=== PATIENT | female | born 1980 | race Caucasian/White ===

== ENCOUNTER 2021-05-01 12:33 | Inpatient (IN) ==
[2021-05-01] MEDS ORDERED: Azithromycin 500 MG in 0.9 % Sodium Chloride 250 ML IVPB PRN (13:01)
[2021-05-01] MEDS ORDERED: Ondansetron 4 MG/2 ML VIAL IVP PRN (13:01)
[2021-05-01] MEDS ORDERED: Naloxone 0.4 MG/ML INJ IVP PRN (13:01)
[2021-05-01] MEDS ORDERED: Metoclopramide 10 MG/2 ML VIAL IVP PRN (13:01)
[2021-05-01] MEDS ORDERED: Famotidine 20 MG/2 ML VIAL IVP PRN (13:01)
[2021-05-01] MEDS: Ringers Solution, Lactated 1,000 ML IVC SCH (16:22)
[2021-05-01 16:36] LABS: Basophils % 0.2 %; Eosinophils # 0.1 K/mcL (0.0-0.6); Eosinophils % 1.2 %; Hematocrit 41.3 % (35.3-44.9); Hemoglobin 13.2 g/dL (11.5-15.4); Immature Granulocytes % 0.2 % (0-4); Lymphocytes # 1.9 K/mcL (0.6-4.6); Mean Corpuscular Hemoglobin 28.9 pg (28.0-33.3); Mean Corpuscular Volume 90.6 fL (83.0-100.0); Monocytes # 0.4 K/mcL (0.0-1.3); Monocytes % 4.3 %; Neutrophils # 7.9 K/mcL (1.6-8.9); Platelet Count 328 K/mcL (140-400); Red Blood Count 4.56 M/mcL (3.82-4.97); Red Cell Distribution Width 13.3 % (11.5-14.5); Segmented Neutrophils % 76.1 %; White Blood Count 10.3 K/mcL (4.3-11.1)
[2021-05-01 16:52] LABS: Amphetamine Screen,Urine Negative ng/mL (Cutoff=1000); Barbiturate Screen,Urine Negative ng/mL (Cutoff=200); Benzodiazepines Screen,Urine Negative ng/mL (Cutoff=200); Cannabinoid Screen,Urine Negative ng/mL (Cutoff = 50); Cocaine Screen,Urine Negative ng/mL (Cutoff= 300); Opiate Screen,Urine Negative ng/mL (Cutoff=300); Phencyclidine Screen,Urine Negative ng/mL (Cutoff=25)
[2021-05-01] MEDS ORDERED: miSOPROStoL 25 MCG TABLET VG ONE (17:00)
[2021-05-01] MEDS ORDERED: EPHEDrine 50 MG/ML VIAL IVP PRN (17:03)
[2021-05-01] MEDS ORDERED: miSOPROStoL 100 MCG TABLET VG ONE (17:45)
[2021-05-01] MEDS ORDERED: miSOPROStoL 100 MCG TABLET PO ONE (23:00)
[2021-05-01] MEDS: Epidural Premix (fent/bupiv) 110 ML EP SCH (23:24)
[2021-05-02] MEDS: Ringers Solution, Lactated 1,000 ML IVC SCH (00:14)
[2021-05-02] MEDS: Epidural Premix (fent/bupiv) 110 ML EP SCH (04:31)
[2021-05-02] MEDS ORDERED: Oxytocin 20 units/ LR 1000 mL 20 UNIT/1,000 ML BAG IVC ONE (07:09)
[2021-05-02] MEDS ORDERED: Prenatal Vit/FA 1 EACH TABLET PO SCH (09:22)
[2021-05-02] MEDS ORDERED: Ondansetron ODT 4 MG TAB.RAPDIS SL PRN (09:22)
[2021-05-02] MEDS ORDERED: Benzocaine/Menthol 56 GM AEROSOL SPRAY TP PRN (09:22)
[2021-05-02] MEDS ORDERED: Acetaminophen 325 MG TABLET PO SCH (09:22)
[2021-05-02] MEDS ORDERED: Lanolin 7 G OINT...G. TP PRN (09:22)
[2021-05-02] MEDS ORDERED: Oxytocin 20 units/ LR 1000 mL 20 UNIT/1,000 ML BAG IVC SCH (09:22)
[2021-05-02] MEDS ORDERED: Ibuprofen 600 MG TABLET PO SCH (10:39)
[2021-05-02 10:53] VITALS: BP 104/55; PULSE 60; TEMP 98.4; O2SAT 98
== END 2021-05-02 16:15 | disposition home or self-care (01) | DRG 805 ==
LOC: 1NENULAB → 1NENUOBS 05-02 10:36
PROVIDERS: ADMIT Advanced Practice Midwife; ATTEND Advanced Practice Midwife